=== PATIENT | male | born 1975 | race Caucasian/White ===

== ENCOUNTER → 2020-04-26 | Outpatient (CLI) | payer BC ==
[~2020-04-26] MED LIST: ASPIRIN EC81 MG PO; FISH OIL 1,0001 EAC3 PO; HOLTER MONITOR; LOPRESSOR 25 MG25 MG PO; PERCOCET 5/325 T1 EA PO; ZOFRAN ODT 4 MG4 MG PO
== END ==
LOC: SLEEP 11:17
DX: G47.33 Obstructive sleep apnea (adult) (pediatric) (principal); G47.10 Hypersomnia, unspecified; R06.83 Snoring
CPT/HCPCS: 95810

== ENCOUNTER → 2020-08-04 | Outpatient (CLI) | payer OTHER | LOC: US 11:00 | DX: N50.89 Other specified disorders of the male genital organs (principal); I86.1 Scrotal varices | CPT/HCPCS: 76870 ==

== ENCOUNTER → 2021-03-03 | Outpatient (CLI) | payer OTHER | LOC: EMI 02-25 09:00 | DX: H57.89 Other specified disorders of eye and adnexa (principal); J32.2 Chronic ethmoidal sinusitis | CPT/HCPCS: 70551 ==

== ENCOUNTER 2021-10-24 15:03 | Emergency (ER) | payer OTHER ==
[2021-10-24 16:23] LABS: HEMOGLOBIN 15.9 gm/dl (14.0-17.5); RED BLOOD COUNT 5.02 M/UL (4.20-5.50); WHITE BLOOD COUNT 11.8 K/UL (4.5-11.0)
[2021-10-24 17:22] LABS: BUN/CREATININE RATIO 13 (0-10)
[2021-10-24] MEDS ORDERED: IBUPROFEN600 MG PO (18:09)
== END 2021-10-24 18:22 | disposition home or self-care (01) ==
LOC: ER1 15:03
PROVIDERS: Emergency Medicine
DX: M25.572 Pain in left ankle and joints of left foot (principal)
CPT/HCPCS: 73610; 80053; 84550; 85025; 85652; 86140; 99283